=== PATIENT | female | born 1980 | race Caucasian/White ===

== ENCOUNTER 2019-06-16 08:17 | Inpatient (IN) | payer MEDICAID ==
[2019-06-12 10:45] LABS: BASOPHIL % 0.3 % (0-2); PLATELET COUNT 325 x10^3mcL (130-400); RED CELL DISTRIBUTION WIDTH 16.8 % (11.5-14.5)
[2019-06-12 11:20] LABS: ALBUMIN 3.8 g/dL (3.4-5.0); ALKALINE PHOSPHATASE 79 U/L (46-116); ALT/SGPT 25 U/L (14-59); AST/SGOT 16 U/L (15-37); BILIRUBIN TOTAL 0.3 mg/dL (0.20-1.00); CALCIUM 8.8 mg/dL (8.5-10.1); CARBON DIOXIDE 27.5 mmol/L (21-32); CHLORIDE SERUM 105 mmol/L (98-107); CREATININE SERUM 0.7 mg/dL (0.6-1.0); GFR1 > 60 mL/min; GLUCOSE SERUM 85 mg/dL (74-106); POTASSIUM SERUM 4.6 mmol/L (3.5-5.1); SODIUM SERUM 138 mmol/L (136-145); TOTAL PROTEIN, SERUM 7.9 g/dL (6.4-8.2)
[~2019-06-16] VITALS: Ht 165.1 cm; Wt 86.8 kg
[2019-06-16 08:54] VITALS: BP 112/67
[2019-06-16 14:55] VITALS: BP 124/76
[2019-06-16 18:06] VITALS: BP 110/57
[2019-06-16 20:35] VITALS: BP 109/67
[2019-06-17] VITALS (8 sets, daily range): BP systolic 99–146; BP diastolic 56–68
[2019-06-18 05:05] VITALS: BP 103/49
[2019-06-18 06:29] LABS: BASOPHIL % 0.4 % (0-2); PLATELET COUNT 273 x10^3mcL (130-400)
[2019-06-18 07:04] LABS: RED CELL DISTRIBUTION WIDTH 16.7 % (11.5-14.5)
[2019-06-18 08:42] VITALS: BP 110/69
[2019-06-18 13:47] VITALS: BP 110/69
== END 2019-06-18 17:20 | disposition home or self-care (01) | DRG 363 ==
LOC: DS 08:17 → OR 11:00 → MU 13:59
PROVIDERS: Surgery; ADMIT Surgery
PROC: 07B50ZX Excision of Right Axillary Lymphatic, Open Approach, Diagnostic (ICD-10-PCS; 2019-06-16)
PROC: 0HBV0ZZ Excision of Bilateral Breast, Open Approach (ICD-10-PCS; principal; 2019-06-16 11:00)
DX: C50.911 Malignant neoplasm of unspecified site of right female breast (principal)
CPT/HCPCS: G0378; J1170; J2250; J2270; J3010; J3480; J3490; Q9968